=== PATIENT | male | born 1940 | race Caucasian/White ===

== ENCOUNTER → 2016-11-22 | Outpatient (CLI) | payer MEDICARE ==
--- NOTE | 2016-11-22 09:36 | RADIOLOGY REPORT (SQ) ---
EXAM DESCRIPTION: U/S RETROPERITON LTD COMPLETED DATE/TIME: 11/22/2016 9:21 am REASON FOR STUDY: ANNUAL F/U FOR AAA (I71.4) ENC FOR CARDIOVASCULAR SCREENING (Z13.6) Z13.6 ENCOUNT ER FOR SCREENING FOR CARDIOVASCULAR DISORDERS I71.4 ABDOMINAL AORTIC ANEURYSM, WITHOUT RUPTURE COMPARISON: None. TECHNIQUE: Static and dynamic grayscale images acquired of the aorta and stored on PACs. Selected co gricel Doppler and spectral images recorded. LIMITATIONS: None. FINDINGS: AORTIC CALIBER MAXIMAL PROXIMAL: Not visualized due to overlying bowel gas. MID: 3.8 x 3.8 x 4.0 cm. Cm. DISTAL: 1.3 cm. ILIAC DIAMETER RIGHT: Not visualized. LEFT: Not visualized. OTHER: No other significant finding. IMPRESSION: 3.8 x 3.8 x 4.0 cm mid abdominal aortic aneurysm. TECHNICAL DOCUMENTATION: JOB ID: [id number] [employer]- All Rights Reserved
== END ==
LOC: RAD 08:14
PROVIDERS: ATTEND Family Medicine
DX: Z13.6 Encounter for screening for cardiovascular disorders (principal); I71.4 Abdominal aortic aneurysm, without rupture
CPT/HCPCS: 76775